=== PATIENT | female | born 1940 | race Caucasian/White ===

== ENCOUNTER 2017-06-12 05:51 | Day surgery (SDC) | payer BC ==
[~2017-06-12] VITALS: Ht 152.4 cm; Wt 54.2 kg
[~2017-06-12 05:51] MED LIST: ATEN25TA PO; B12 PO; CALCIUM CITRATE PO; CHOL2000 PO; CRANBERRY PO; ESOM40CA PO; FISH OIL PO; FLAX1CAP PO; GLUC1TAB55 PO; LEVO75TA5 PO; MAGNESIUM PO; MULT-516 PO; RISE35TA3 PO; VITA1TAB19 PO; VITAMIN C PO; VITAMIN E PO
[2017-06-12] MEDS ORDERED: FLUORESCEIN SODIUM 500 MG/5 ML ONE (06:47)
[2017-06-12] MEDS ORDERED: THROMBIN 5,000 UNIT VIAL TP ONE (06:47)
[2017-06-12] MEDS ORDERED: BUPIVACAINE/PF 0.25% ONE (06:47)
[2017-06-12] MEDS ORDERED: EPINEPHRINE 1 MG/ML, 1ML ONE (06:48)
[2017-06-12] MEDS ORDERED: NEOMY/POLYMYXIN B GU IRR. 1 ML IRRIG ONE (06:51)
[2017-06-12] MEDS ORDERED: LACTATED RINGERS 1,000 ML IV SCH ×2 (07:01→09:38)
[2017-06-12] MEDS ORDERED: ACETAMINOPHEN 500 MG TABLET ONE (07:16)
[2017-06-12] MEDS ORDERED: LIDOCAINE GEL 2%, 5ML ONE (07:20)
[2017-06-12] MEDS ORDERED: FENTANYL PF 100 MCG/2ML ONE ×2 (07:23→09:46)
[2017-06-12] MEDS ORDERED: NEOSTIGMINE 1 MG/ML, 10ML ONE (07:25)
[2017-06-12] MEDS ORDERED: DEXAMETHASONE 4 MG/ML, 1ML ONE (07:25)
[2017-06-12] MEDS ORDERED: PROPOFOL 10 MG/ML, 20ML ONE (07:25)
[2017-06-12] MEDS ORDERED: ONDANSETRON 2MG/ML, 2ML ONE (07:25)
[2017-06-12] MEDS ORDERED: CEFAZOLIN 1,000 MG ONE (07:25)
[2017-06-12] MEDS ORDERED: GLYCOPYRROLATE 0.2MG/1ML, 5ML ONE (07:25)
[2017-06-12] MEDS ORDERED: SUCCINYLCHOLINE 20 MG/ML, 10ML ONE (07:25)
[2017-06-12] MEDS ORDERED: ROCURONIUM 10MG/ML,5ML ONE (07:28)
[2017-06-12] MEDS ORDERED: KETOROLAC 30 MG/1 ML ONE (07:28)
[2017-06-12] MEDS ORDERED: ACETAMINOPHEN 500 MG TABLET PO ONE (07:30)
[2017-06-12] MEDS ORDERED: ALBUTEROL/IPRATROPIUM 2.5MG/0.5MG, 3 ML NPPB PRN (08:30)
[2017-06-12] MEDS ORDERED: OXYcodone 5 MG/5 ML ORAL.SOL UDC PO PRN (08:30)
[2017-06-12] MEDS ORDERED: MIDAZOLAM 1 MG/ML, 2ML IV PRN (08:30)
[2017-06-12] MEDS ORDERED: ONDANSETRON 2MG/ML, 2ML IVPush PRN ×2 (08:30→10:00)
[2017-06-12] MEDS ORDERED: MEPERIDINE/PF 25MG/0.5ML IVPush PRN (08:30)
[2017-06-12] MEDS ORDERED: PROMETHAZINE 25 MG/ML, 1ML IV PRN (08:30)
[2017-06-12] MEDS ORDERED: PROMETHAZINE 12.5 MG SUPP PR PRN (08:30)
[2017-06-12] MEDS ORDERED: ALBUTEROL SULFATE 2.5 MG/3 ML NPPB PRN (08:30)
[2017-06-12] MEDS ORDERED: hydrALAzine 20 MG/ML, 1ML IV PRN (08:30)
[2017-06-12] MEDS ORDERED: METOPROLOL 1 MG/ML, 5ML IV PRN (08:30)
[2017-06-12] MEDS ORDERED: morphine SULFATE 10 MG/ML, 1ML IV PRN (08:30)
[2017-06-12] MEDS ORDERED: OXYcodone 5 MG/5 ML ORAL.SOL UDC ONE (09:47)
[2017-06-12] MEDS: FENTANYL PF 100 MCG/2ML IV PRN ×2 (09:50→09:59)
[2017-06-12] MEDS ORDERED: PROMETHAZINE 12.5 MG SUPP PR ONE (10:00)
[2017-06-12] MEDS ORDERED: IBUPROFEN 600 MG TABLET PO PRN (10:00)
[2017-06-12] MEDS ORDERED: HYDROcodone/APAP 5/325 TABLET PO PRN (10:00)
[2017-06-12] MEDS ORDERED: MIDAZOLAM 1 MG/ML, 2ML ONE (10:03)
[2017-06-12] MEDS ORDERED: PROMETHAZINE 25 MG/ML, 1ML ONE (10:07)
== END 2017-06-12 17:40 ==
LOC: OUT 05:51
PROVIDERS: ATTEND Obstetrics & Gynecology Female Pelvic Medicine and Reconstructive Surgery
DX: K64.9 Unspecified hemorrhoids (principal); N81.6 Rectocele; N39.3 Stress incontinence (female) (male); K62.3 Rectal prolapse; N73.6 Female pelvic peritoneal adhesions (postinfective); E07.9 Disorder of thyroid, unspecified; Z88.5 Allergy status to narcotic agent; Z90.710 Acquired absence of both cervix and uterus; Z98.890 Other specified postprocedural states
CPT/HCPCS: 57282; 57288; 58661; 88302; C1771; C1781; J0171; J0690; J1100; J1885; J2250; J2405; J2550; J2704; J2710; J3010; J3490; J7120; J0330

== ENCOUNTER 2019-03-29 15:50 | Emergency (ER) | payer BC ==
[~2019-03-29] VITALS: Ht 152.4 cm; Wt 54.3 kg
[~2019-03-29 15:50] MED LIST changes: +RISE35TA PO; -RISE35TA3 PO
[2019-03-29] MEDS ORDERED: RISEDRONATE (16:26)
[2019-03-29] MEDS ORDERED: SYNTHROID (16:26)
[2019-03-29] MEDS ORDERED: LOSARTAN (16:26)
--- NOTE | 2019-03-29 16:26 | NUR ---
PT CAME IN CO OF DIZZYNESS AND SAYS "SHE GETS CONFUSED FROM TIME TO TIME". THIS HAS BEEN GOING FOT ABOUT 6 MONTHS. STATES SHE FEELS UNSTEADY ON HER FEET AT TIMES. BLANKET PROVIDED.
--- NOTE | 2019-03-29 16:27 | NUR ---
ORTHOSTATIC VITAL SIGNS: PT BP RESTING SUPINE 140/56 PULSE 64 AND STANDING 121/55 PULSE 76
[2019-03-29] MEDS ORDERED: SODIUM CHLORIDE FLUSH 10ML SYR IVF ONE (16:30)
[2019-03-29] MEDS ORDERED: PLEASE ENTER ALLERGIES MC SCH (16:30)
[2019-03-29 16:46] LABS: HCT (SEDRATE) 40.6 % (34.6-47.8)
[2019-03-29 16:47] LABS: BASOPHILS # (AUTO) 0.01 x10^3/uL (0-0.1); BASOPHILS % (AUTO) 0 % (0-1); EOSINOPHILS # (AUTO) 0.02 x10^3/uL (0-0.4); EOSINOPHILS % (AUTO) 0 % (1-7); LYMPHOCYTES # (AUTO) 1.44 x10^3/uL (1-3.4); LYMPHOCYTES % (AUTO) 29 % (22-44); MD NO; MEAN CORPUSCULAR HEMOGLOBIN 31.6 pg (27.0-34.8); MEAN CORPUSCULAR HGB CONC 32.8 g/dL (32.4-35.8); MEAN CORPUSCULAR VOLUME 96.5 fL (80-100); MEAN PLATELET VOLUME 7.6 fL (7.4-10.4); MONOCYTES # (AUTO) 0.29 x10^3/uL (0.2-0.8); MONOCYTES % (AUTO) 6 % (2-9); NEUTROPHILS # (AUTO) 3.14 x10^3/uL (1.8-6.8); NEUTROPHILS % (AUTO) 64 % (42-75); PLATELET COUNT 222 x10^3/uL (130-400); RED BLOOD COUNT 4.25 x10^6/uL (3.82-5.3); RED CELL DISTRIBUTION WIDTH 12.7 % (9.6-15.2)
[2019-03-29 16:57] LABS: ALBUMIN 3.8 g/dL (3.4-5.0); ANION GAP 4 mmol/L (5-15); CALCIUM 9.2 mg/dL (8.5-10.1); CHLORIDE 106 mmol/L (98-107)
[2019-03-29] MEDS ORDERED: SODIUM CHLORIDE 0.9%, 500ML IVBOLUS ONE (17:00)
[2019-03-29 17:25] LABS: CREATININE 0.85 mg/dL (0.55-1.02)
--- NOTE | 2019-03-29 18:05 | NUR ---
PT RESTING IN HOSPITAL BED. AWAITING CTA RESULTS
[2019-03-29] MEDS ORDERED: OMNIPAQUE 350 MG/ML, 100ML BOTTLE ONE (18:07)
[2019-03-29 18:28] LABS: MICROSCOPIC AUTO
[2019-03-29 18:42] LABS: CULTURE INDICATED? YES
[2019-03-29 19:00] VITALS: BP 131/51
--- NOTE | 2019-03-29 19:01 | NUR ---
PT RESTING IN HOSPITAL BED. AWAITING CTA RESULTS. NO NEEDS AT THIS TIME
--- NOTE | 2019-03-29 19:48 | NUR ---
PT IS AT MRI
== END 2019-03-29 21:30 | disposition home or self-care (01) ==
LOC: ED 16:55
DX: R42 Dizziness and giddiness (principal); E86.0 Dehydration; R51 Headache; I10 Essential (primary) hypertension; E03.9 Hypothyroidism, unspecified; Z90.710 Acquired absence of both cervix and uterus
CPT/HCPCS: 36415; 70450; 70498; 70551; 80048; 81001; 82040; 82607; 83735; 85025; 85651; 87086; 93005; 96360; 99284; J7040; Q9967